=== PATIENT | male | born 1965 | race Caucasian/White ===

== ENCOUNTER 2016-09-21 23:49 | Emergency (ER) | payer OTHER ==
[2016-09-22 01:01] LABS: HEMOGLOBIN 16.2 gm/dl (14.0-17.5); RED BLOOD COUNT 5.05 M/UL (4.20-5.50)
[2016-09-22 01:25] LABS: BUN/CREATININE RATIO 19 (0-10)
== END 2016-09-22 04:39 | disposition home or self-care (01) ==
LOC: ER1 23:49
PROVIDERS: Family Medicine
DX: S16.1XXA Strain of muscle, fascia and tendon at neck level, initial encounter (principal); R51 Headache; R03.0 Elevated blood-pressure reading, without diagnosis of hypertension; F17.200 Nicotine dependence, unspecified, uncomplicated; X50.9XXA Other and unspecified overexertion or strenuous movements or postures, initial encounter; Y92.69 Other specified industrial and construction area as the place of occurrence of the external cause; Y99.0 Civilian activity done for income or pay
CPT/HCPCS: 36415; 70450; 72125; 80053; 82550; 82553; 83874; 84484; 85025; 96361; 96374; 96375; 99284; J2270; J2405